=== PATIENT | male | born 1980 | race African-American/Black ===

== ENCOUNTER 2024-06-22 06:30 | Emergency (ER) | payer OTHER ==
[2024-06-22 06:49] VITALS: TEMP 98.4; BMI 26.5
[2024-06-22] MEDS ORDERED: ACETAMINOPHEN 1000 MG/100 ML BAG IVPB ONE (07:17)
[2024-06-22] MEDS ORDERED: METOCLOPRAMIDE HCL INJECTION 10 MG/2 ML VIAL IVPB ONE (07:18)
[2024-06-22] MEDS ORDERED: ACETAMINOPHEN INJECTION 100 ML ONE (07:22)
[2024-06-22] MEDS ORDERED: METOCLOPRAMIDE HCL INJECTION 10 MG/2 ML VIAL ONE (07:22)
[2024-06-22] MEDS ORDERED: LACTATED RINGERS SOLUTION 1000 ML INFUS.BAG IV ONE (07:30)
[2024-06-22] MEDS ORDERED: ACETAMINOPHEN 325 MG TABLET (FP) ONE (07:32)
[2024-06-22] MEDS: ACETAMINOPHEN 325 MG TABLET (FP) PO ONE (07:35)
[2024-06-22 08:13] VITALS: BP 136/87; PULSE 60; RESP 15
== END 2024-06-22 08:33 | disposition home or self-care (01) ==
LOC: JER 06:30
DX: I10 Essential (primary) hypertension (principal); R51.9 Headache, unspecified
CPT/HCPCS: 99283-25

== ENCOUNTER 2025-08-18 09:42 | Emergency (ER) | payer OTHER ==
[2025-08-18 09:49] VITALS: BMI 26.1
[2025-08-18 11:41] LABS: MCHC 34.6 g/dl (32.3-36.5); MEAN CELL VOLUME 87.8 fl (79.0-92.2); MEAN PLT VOLUME 11.1 fl (9.4-12.4); RDW 11.9 % (12.1-15.9)
[2025-08-18 11:57] LABS: GLUCOSE,RANDOM 83.0 mg/dL (74-106)
[2025-08-18 11:58] LABS: TOT PROT 7.4 g/dl (6.4-8.2)
[2025-08-18 11:59] LABS: CO2 24.0 mmol/L (21-32)
[2025-08-18 12:00] LABS: ALK PHOS 72.0 U/L (40-150)
[2025-08-18 12:03] LABS: CREATININE 1.14 mg/dL (0.55-1.3); SGOT/AST 22.0 U/L (5-34); SGPT/ALT 10.0 U/L (0-55)
[2025-08-18 13:08] VITALS: BP 129/89; PULSE 73; RESP 20; TEMP 98.3
== END 2025-08-18 12:55 | disposition home or self-care (01) ==
LOC: JER 09:42
DX: I10 Essential (primary) hypertension (principal); R42 Dizziness and giddiness
CPT/HCPCS: 36415; 71045-TC-FY; 80053; 83735; 84443; 84484; 85027; 93005; 93010; 99285-25